=== PATIENT | female | born 1945 | race Caucasian/White ===

== ENCOUNTER 2021-12-06 13:03 | Outpatient (CLI) | payer MEDICARE, BC | END 2021-12-06 13:04 | disposition home or self-care (01) | LOC: CSHULT 13:03 | PROVIDERS: ATTEND Internal Medicine | DX: E04.1 Nontoxic single thyroid nodule (principal); N28.1 Cyst of kidney, acquired; E04.2 Nontoxic multinodular goiter | CPT/HCPCS: 76536; 76770 ==